=== PATIENT | female | born 1965 | race Caucasian/White ===

== ENCOUNTER 2019-04-05 11:47 | Inpatient (IN) | payer BC, SELFPAY ==
--- NOTE | 2019-04-05 12:21 | RAD ---
2 VIEW CHEST: Date: 04/05/19 HISTORY: Shortness of breath. FINDINGS: Lung villavicencio are clear. Heart and mediastinum appear normal. Postop sternotomy changes. IMPRESSION: No acute findings. POS: [facility]
[2019-04-05 12:45] LABS: #Lymphocytes 1.3 thou/uL (1.20-3.40); #Monocytes 0.6 thou/uL (0.11-0.59); #Neutrophils 7.3 thou/uL (1.40-6.50); %Basophils 0.5 % (0.0-1.0); %Eosinophils 0.3 % (0.0-10.0); %Lymphocytes 13.6 % (21.0-51.0); %Monocytes 6.5 % (0.0-10.0); %Neutrophils 79.2 % (42.0-75.0); Hemoglobin 14.2 g/dL (12.0-16.0); Mean Corpuscular HGB CONC 34.2 g/dL (32.0-36.0); Mean Corpuscular Hemoglobin 34.8 pg (27.0-31.0); Mean Platelet Volume 6.5 fL (7.4-10.4); Platelet Count 304 thou/uL (130-400); RBC Distribution Width 12.1 % (11.5-14.5); Red Blood Cell (RBC) Count 4.08 mill/uL (4.20-5.40); White Blood Cell (WBC) Count 9.3 thou/uL (4.8-10.8)
[2019-04-05 13:06] LABS: ALT (SGPT) 15 U/L (8-55); AST (SGOT) 14 U/L (5-34); Albumin 4.4 g/dL (3.5-5.0); Alkaline Phosphatase 82 U/L (40-110); Anion Gap 11 mmol/L (10-20); BUN (Urea Nitrogen) 8 mg/dL (9.8-20.1); Bilirubin, Total 0.3 mg/dL (0.2-1.2); CK (CPK) 93 U/L (29-168); Calc. Creatinine Clearance 0 mL/min (70-130); Calcium 9.6 mg/dL (7.8-10.44); Carbon Dioxide 28 mmol/L (22-29); Chloride 103 mmol/L (98-107); Estimated GFR-MDRD 63; Glucose 119 mg/dL (70-105); Protein, Total 7.4 g/dL (6.0-8.3); Sodium 138 mmol/L (136-145)
[2019-04-05] MEDS ORDERED: methylPREDNISolone Sod Succ/PF 125 MG/2 ML VIAL ONE (13:14)
[2019-04-05] MEDS ORDERED: Ondansetron ODT 4 MG TAB PO PRN (17:29)
[2019-04-05] MEDS ORDERED: Ondansetron PF 4 MG/2 ML Vial IVP PRN (17:29)
[2019-04-05] MEDS ORDERED: Guaifenesin DM 100-10/5 ML UDCUP PO PRN (17:29)
[2019-04-05] MEDS ORDERED: Nitroglycerin 0.4 MG TAB (25 Tab Bottle) SL PRN (17:49)
[2019-04-05] MEDS ORDERED: Azithromycin 500 MG in Sodium Chloride 0.9% 250 ML 250 ML IVPB SCH (18:00)
[2019-04-05] MEDS: cefTRIAXone\\ROCEPHIN 2 GM in Sodium Chloride 0.9% 100 ML IVPB SCH (19:06)
[2019-04-05] MEDS: Acetaminophen 325 MG TAB PO PRN (19:11)
[2019-04-05] MEDS: Aspirin Chewable 81 MG TAB PO SCH (19:11)
[2019-04-05 19:14] VITALS: BMI 34.9
--- NOTE | 2019-04-05 19:52 | HP ---
PRIMARY CARE PHYSICIAN: Dr. Duncan. CHIEF COMPLAINT: Cough and shortness of breath. HISTORY OF PRESENT ILLNESS: Ms. Irene is a 54-year-old female with a past medical history of hypertension, hypothyroidism, COPD, currently on oxygen at home, presented to the ED earlier today after worsening cough and shortness of breath since Tuesday. She states that she had seen her PCP earlier on in the week and was started on a Z-Samuel along with some prednisone. She states that since then, she has needed frequent DuoNeb treatments at home and she is on 2 L of oxygen during the day and 3 L of oxygen at nighttime. She states that she sees Dr. Leone, [place] sorter for history of CHF, which is currently stable at this time. She states over the last 2 to 3 days, she has had this left-sided rib pain that is worse with cough and deep breathing. Upon arriving to the ED, her chest x-ray was found to be clear. However, she had scattered wheezing throughout and had an increased work of breathing. Her troponin was found to be less than 0.010. Her vitals were found to be stable and she had no elevated white count, she was treated with IV Solu-Medrol 125 mg along with 2 DuoNeb treatments. She had stated that her symptoms did improve after this regimen. She had denied any fever, chills, headache, blurred vision, dizziness, any chest pain, palpitations, abdominal pain, nausea, or vomiting. REVIEW OF SYSTEMS: All other systems reviewed and found to be negative unless mentioned in HPI. PAST MEDICAL HISTORY: Hypertension, hypothyroidism, COPD, coronary artery disease status post CABG x3, and gastroesophageal reflux disease. PAST SURGICAL HISTORY: Left arm surgery, CABG x3 in 2000, tubal ligation, and radiation treatment on the thyroid. PSYCHIATRIC HISTORY: Includes anxiety. SOCIAL HISTORY: The patient is a former smoker. She quit smoking cigarettes more than 10 years ago. She denies alcohol or illicit drug use. KNOWN ALLERGIES: Influenza vaccine, statin and pneumococcal vaccine. CURRENT HOME MEDICATIONS: 1. Aspirin 81 mg daily. 2. Alprazolam 1 mg p.o. t.i.d. 3. Alirocumab 150 mg subcutaneous. 4. DuoNeb 3 mL nebulizer q.i.d. 5. Pepcid 20 mg p.o. b.i.d. 6. Carvedilol 18.75 mg p.o. b.i.d. 7. Clopidogrel 37.5 mg p.o. daily. 8. Isosorbide 30 mg b.i.d. and 60 mg p.o. at 1500 hours. 9. Levothyroxine 125 mcg p.o. daily. 10. Magnesium 400 mg p.o. b.i.d. 11. Nitroglycerin 0.4 mg sublingual daily. 12. Protonix 40 mg p.o. daily. 13. Ranexa 1000 mg p.o. b.i.d. 14. Spironolactone 25 mg p.o. daily. PHYSICAL EXAMINATION: VITAL SIGNS: Blood pressure 124/80, pulse 87, respirations 18, temperature 97.9, and O2 saturation 94% on 2 L of oxygen via nasal cannula. GENERAL: The patient is awake, alert, and oriented x3. She is currently lying comfortably in bed and in no acute distress. Her is at bedside and she is on 2 L of oxygen via nasal cannula. HEENT: Atraumatic, normocephalic. Pupils are round and reactive to light. Extraocular muscles intact. Moist mucous membranes noted. NECK: Soft and supple. Trachea midline. CARDIOVASCULAR: Positive S1 and S2. Regular rate and rhythm. No murmur auscultated. RESPIRATORY: Diffuse wheezing throughout lung villavicencio. ABDOMEN: Soft, nontender. Bowel sounds present. EXTREMITIES: Moves all extremities equal. Pedal and radial pulses 2+ bilaterally. No edema noted. NEUROLOGIC: Cranial nerves 2 through 12 grossly intact. No focal deficits noted. Speech intact and normal. Gait not assessed. SKIN: Warm, dry, and intact. No rashes. No ulceration noted. PSYCHIATRIC: Good mood and affect. LABORATORY DATA: WBC 9.3, RBC 4.08, hemoglobin 14.2, hematocrit 41.5, platelet count 304. Sodium 138, potassium 4.0, anion gap 11, BUN 8, creatinine 0.93, estimated GFR 63, glucose 119. Troponin less than 0.010. BNP 127.5. DIAGNOSTIC IMAGING: Two-view chest x-ray revealed no acute findings. ASSESSMENT/PLAN: 1. Chronic obstructive pulmonary disease exacerbation, the patient will be treated with IV ceftriaxone and azithromycin. She will be placed on as needed DuoNeb treatments along with IV Solu-Medrol 40 mg q.6 hours. 2. Hypertension, currently stable. Continue home regimen. 3. History of coronary artery disease. Continue home regimen. 4. History of cardiomyopathy. Continue home regimen. 5. Hypothyroidism, continue home levothyroxine. 6. Gastroesophageal reflux disease. Continue home regimen. 7. Deep venous thrombosis and gastrointestinal prophylaxis. 8. Code status, full code. DISPOSITION: Pending further workup and clinical findings. Job ID: [id number]
[2019-04-05] MEDS: Azithromycin 500 MG in Sodium Chloride 0.9% 250 ML 250 ML IVPB SCH (20:26)
[2019-04-05] MEDS: Magnesium Oxide 400 MG TAB PO SCH (20:29)
[2019-04-05] MEDS: Famotidine 20 MG TAB PO SCH (20:30)
[2019-04-05] MEDS: ALPRAZolam 1 MG TAB PO SCH (20:33)
[2019-04-05] MEDS: Carvedilol 6.25 MG TAB PO SCH (20:33)
[2019-04-05] MEDS: Isosorbide Dinitrate 20 MG TAB PO SCH (20:34)
[2019-04-05] MEDS: traMADol HCl 50 MG TAB PO PRN (22:12)
[2019-04-06] MEDS: methylPREDNISolone Sod Succ 40 MG VIAL IVP SCH ×2 (05:14→11:44)
[2019-04-06] MEDS: Levothyroxine Sodium 125 MCG TAB PO SCH (05:14)
[2019-04-06] MEDS: traMADol HCl 50 MG TAB PO PRN ×3 (05:15→21:07)
[2019-04-06 06:19] LABS: #Lymphocytes 1.3 thou/uL (1.20-3.40); #Monocytes 0.2 thou/uL (0.11-0.59); #Neutrophils 10.1 thou/uL (1.40-6.50); %Basophils 0.2 % (0.0-1.0); %Eosinophils 0.1 % (0.0-10.0); %Lymphocytes 10.9 % (21.0-51.0); %Monocytes 1.9 % (0.0-10.0); Hemoglobin 13.2 g/dL (12.0-16.0); Mean Corpuscular HGB CONC 34.2 g/dL (32.0-36.0); Mean Corpuscular Hemoglobin 34.9 pg (27.0-31.0); Mean Platelet Volume 6.7 fL (7.4-10.4); Platelet Count 299 thou/uL (130-400); RBC Distribution Width 12.2 % (11.5-14.5); Red Blood Cell (RBC) Count 3.79 mill/uL (4.20-5.40); White Blood Cell (WBC) Count 11.6 thou/uL (4.8-10.8)
[2019-04-06 06:40] LABS: Anion Gap 15 mmol/L (10-20); BUN (Urea Nitrogen) 10 mg/dL (9.8-20.1); Calc. Creatinine Clearance 115 mL/min (70-130); Calcium 9.3 mg/dL (7.8-10.44); Carbon Dioxide 26 mmol/L (22-29); Chloride 99 mmol/L (98-107); Estimated GFR-MDRD 77; Glucose 117 mg/dL (70-105); Potassium 4.1 mmol/L (3.5-5.1); Sodium 136 mmol/L (136-145)
[2019-04-06] MEDS: Clopidogrel Bisulfate 75 MG TAB PO SCH (08:23)
[2019-04-06] MEDS: Isosorbide Dinitrate 20 MG TAB PO SCH ×3 (08:28→20:38)
[2019-04-06] MEDS: Magnesium Oxide 400 MG TAB PO SCH ×2 (08:29→20:37)
[2019-04-06] MEDS: Spironolactone 25 MG TAB PO SCH (08:30)
[2019-04-06] MEDS: ALPRAZolam 1 MG TAB PO SCH ×3 (08:30→20:39)
[2019-04-06] MEDS: Famotidine 20 MG TAB PO SCH ×2 (08:31→20:37)
[2019-04-06] MEDS: Carvedilol 6.25 MG TAB PO SCH ×2 (08:32→20:38)
[2019-04-06] MEDS ORDERED: ALIROCUMAB 150 MG SC SCH (09:00)
[2019-04-06 14:50] LABS: Troponin I Less than 0.010 ng/mL (< 0.028)
--- NOTE | 2019-04-06 16:32 | PDOC.HOSPP ---
- Subjective Encounter Date: 04/06/19 Encounter Time: 16:30 Subjective: pt up in bed very emotional. States she has some chest tightness earlier. she follows up with Dr jerry. - Objective Vital Signs & Weight: Vital Signs (12 hours) Temp Pulse Resp BP BP Pulse Ox 04/06/19 11:06 89 18 99 04/06/19 08:32 125/85 04/06/19 07:19 97.5 F L 71 16 125/85 95 04/06/19 05:36 97.5 F L 73 20 118/75 95 Weight Weight 197 lb I&O: 04/05/19 04/06/19 04/07/19 06:59 06:59 06:59 Intake Total 240 Balance 240 Result Diagrams: 04/06/19 05:35 04/06/19 05:35 Hospitalist ROS - Review of Systems Respiratory: reports: shortness of breath Cardiovascular: reports: chest pain, palpitations. denies: orthopnea, paroxysmal noc. dyspnea, edema, light headedness, other Gastrointestinal: denies: nausea, vomiting, abdominal pain, diarrhea, constipation, melena, hematochezia, other - Medication Medications: Active Medications Generic Name Dose Route Start Last Admin Trade Name Freq PRN Reason Stop Dose Admin Acetaminophen 650 mg 04/05/19 17:29 04/05/19 19:11 Tylenol PO 650 mg Q4H PRN Administration Headache/Fever/Mild Pain (1-3) Albuterol/Ipratropium 3 ml 04/05/19 17:27 04/06/19 11:06 Duoneb NEB 3 ml [id number] PRN Administration SOB &/or Wheezing Alprazolam 1 mg 04/05/19 21:00 04/06/19 15:18 Xanax PO 1 mg TID MISSAEL Administration Aspirin 81 mg 04/05/19 18:00 04/05/19 19:11 Aspirin Chewable PO 81 mg 1800 MISSAEL Administration Carvedilol 18.75 mg 04/05/19 21:00 04/06/19 08:32 Coreg PO 18.75 mg BID MISSAEL Administration Clopidogrel Bisulfate 37.5 mg 04/06/19 09:00 04/06/19 08:23 Plavix PO 37.5 mg DAILY MISSAEL Administration Famotidine 20 mg 04/05/19 21:00 04/06/19 08:31 Pepcid PO 20 mg BID MISSAEL Administration Ceftriaxone Sodium 2 gm/ 100 mls @ 200 mls/hr 04/05/19 17:30 04/05/19 19:06 Sodium Chloride IVPB 100 mls Q24HR MISSAEL Administration Azithromycin 500 mg/ Sodium 250 mls @ 250 mls/hr 04/05/19 20:00 04/05/19 20: 26 Chloride IVPB 250 mls Q24HR MISSAEL Administration Isosorbide Dinitrate 30 mg 04/05/19 21:00 04/06/19 08:28 Isordil PO 30 mg BID MISSAEL Administration Isosorbide Dinitrate 60 mg 04/06/19 15:00 04/06/19 15:19 Isordil PO 60 mg 1500 MISSAEL Administration Levothyroxine Sodium 125 mcg 04/06/19 06:00 04/06/19 05:14 Synthroid PO 125 mcg 0600 MISSAEL Administration Magnesium Oxide 400 mg 04/05/19 21:00 04/06/19 08:29 Magnesium Oxide PO 400 mg BID MISSAEL Administration Pantoprazole Sodium 40 mg 04/06/19 09:00 04/06/19 08:29 Protonix PO 40 mg DAILY MISSAEL Administration Ranolazine 1,000 mg 04/05/19 21:00 04/06/19 08:23 Ranexa PO 1,000 mg BID MISSAEL Administration Spironolactone 25 mg 04/06/19 09:00 04/06/19 08:30 Aldactone PO 25 mg DAILY MISSAEL Administration Tramadol HCl 50 mg 04/05/19 21:43 04/06/19 11:43 Ultram PO 50 mg Q6H PRN Administration Moderate Pain (4-6) - Exam Heart: negative: RRR, no murmur, no gallops, no rubs, normal peripheral pulses, irregular, diminshed peripheral pulses, murmur present, II/IV, III/IV Respiratory: rhonchi, wheezes Gastrointestinal: negative: soft, non-tender, non-distended, normal bowel sounds , no palpable masses, no hepatomegaly, no splenomegaly, no bruit, no guarding, no rigidity, tender to palpation, distended, diminished bowl sounds, voluntary guarding Extremities: negative: no cyanosis, no clubbing, no edema, 1+ LE edema, 2+ LE edema, clubbing Hosp A/P (1) Acute respiratory failure with hypoxia Code(s): J96.01 - ACUTE RESPIRATORY FAILURE WITH HYPOXIA Status: Acute (2) COPD exacerbation Code(s): J44.1 - CHRONIC OBSTRUCTIVE PULMONARY DISEASE W (ACUTE) EXACERBATION Status: Acute (3) CAD (coronary artery disease) Code(s): I25.10 - ATHSCL HEART DISEASE OF [place] CORONARY ARTERY W/O ANG PCTRS Status: Acute (4) Leukocytosis Code(s): D72.829 - ELEVATED WHITE BLOOD CELL COUNT, UNSPECIFIED Status: Acute - Plan will change steroids to daily, duoneb and abx. will check viral panel. I think her chest tightness is due to anxiety. she was very emotional. trops are negative and her bnp is mildly elevated.
[2019-04-06] MEDS: cefTRIAXone\\ROCEPHIN 2 GM in Sodium Chloride 0.9% 100 ML IVPB SCH (17:54)
[2019-04-06] MEDS: Aspirin Chewable 81 MG TAB PO SCH (17:54)
[2019-04-06] MEDS: Azithromycin 500 MG in Sodium Chloride 0.9% 250 ML 250 ML IVPB SCH (20:39)
[2019-04-07] MEDS: Levothyroxine Sodium 125 MCG TAB PO SCH (05:30)
[2019-04-07] MEDS: Magnesium Oxide 400 MG TAB PO SCH ×2 (07:58→20:12)
[2019-04-07] MEDS: ALPRAZolam 1 MG TAB PO SCH ×3 (07:58→20:12)
[2019-04-07] MEDS: Isosorbide Dinitrate 20 MG TAB PO SCH ×3 (10:10→20:13)
[2019-04-07] MEDS: Carvedilol 6.25 MG TAB PO SCH ×2 (10:12→15:24)
[2019-04-07] MEDS: Famotidine 20 MG TAB PO SCH ×2 (10:12→20:12)
[2019-04-07] MEDS: Clopidogrel Bisulfate 75 MG TAB PO SCH (10:12)
[2019-04-07] MEDS: Spironolactone 25 MG TAB PO SCH (10:13)
[2019-04-07] MEDS: methylPREDNISolone Sod Succ 40 MG VIAL IVP SCH (10:49)
[2019-04-07] MEDS: cefTRIAXone\\ROCEPHIN 2 GM in Sodium Chloride 0.9% 100 ML IVPB SCH (15:14)
[2019-04-07] MEDS: Aspirin Chewable 81 MG TAB PO SCH (15:15)
--- NOTE | 2019-04-07 18:01 | PDOC.HOSPP ---
- Subjective Encounter Date: 04/07/19 Encounter Time: 13:45 Subjective: Ms. Irene was seen today in follow-up of COPD exacerbation. She tells me she continues to have some dyspnea, and tightness in her chest. - Objective Vital Signs & Weight: Vital Signs (12 hours) Temp Pulse Resp BP Pulse Ox 04/07/19 13:35 74 18 94 L 04/07/19 07:41 98.0 F 74 20 122/82 94 L Weight Weight 197 lb I&O: 04/06/19 04/07/19 04/08/19 06:59 06:59 06:59 Intake Total 240 Balance 240 Result Diagrams: 04/06/19 05:35 04/06/19 05:35 Hospitalist ROS - Medication Medications: Active Medications Generic Name Dose Route Start Last Admin Trade Name Freq PRN Reason Stop Dose Admin Acetaminophen 650 mg 04/05/19 17:29 04/05/19 19:11 Tylenol PO 650 mg Q4H PRN Administration Headache/Fever/Mild Pain (1-3) Albuterol/Ipratropium 3 ml 04/05/19 17:27 04/07/19 05:01 Duoneb NEB 3 ml [id number] PRN Administration SOB &/or Wheezing Albuterol/Ipratropium 3 ml 04/07/19 13:00 04/07/19 13:35 Duoneb NEB 3 ml [id number] MISSAEL Administration Alprazolam 1 mg 04/05/19 21:00 04/07/19 15:14 Xanax PO 1 mg TID MISSAEL Administration Aspirin 81 mg 04/05/19 18:00 04/07/19 15:15 Aspirin Chewable PO 81 mg 1800 MISSAEL Administration Carvedilol 18.75 mg 04/05/19 21:00 04/07/19 15:24 Coreg PO 18.75 mg BID MISSAEL Administration Clopidogrel Bisulfate 37.5 mg 04/06/19 09:00 04/07/19 10:12 Plavix PO 37.5 mg DAILY MISSAEL Administration Famotidine 20 mg 04/05/19 21:00 04/07/19 10:12 Pepcid PO 20 mg BID MISSAEL Administration Guaifenesin/Dextromethorphan 15 ml 04/05/19 17:29 04/07/19 08:08 Robitussin Dm PO 15 ml Q4H PRN Administration Cough Ceftriaxone Sodium 2 gm/ 100 mls @ 200 mls/hr 04/05/19 17:30 04/07/19 15:14 Sodium Chloride IVPB 100 mls Q24HR MISSAEL Administration Azithromycin 500 mg/ Sodium 250 mls @ 250 mls/hr 04/05/19 20:00 04/06/19 20: 39 Chloride IVPB 250 mls Q24HR MISSAEL Administration Isosorbide Dinitrate 30 mg 04/05/19 21:00 04/07/19 10:10 Isordil PO 30 mg BID [facility] Administration Isosorbide Dinitrate 60 mg 04/06/19 15:00 04/07/19 15:13 Isordil PO 60 mg 1500 [facility] Administration Levothyroxine Sodium 125 mcg 04/06/19 06:00 04/07/19 05:30 Synthroid PO 125 mcg 0600 [facility] Administration Magnesium Oxide 400 mg 04/05/19 21:00 04/07/19 07:58 Magnesium Oxide PO 400 mg BID [facility] Administration Methylprednisolone Sodium Succinate 40 mg 04/07/19 09:00 04/07/19 10:49 Solu-Medrol IVP Not Given DAILY [facility] Nitroglycerin 0.4 mg 04/05/19 17:49 04/06/19 21:04 Nitrostat SL 1 tab DAILY PRN Administration Chest Pain Pantoprazole Sodium 40 mg 04/06/19 09:00 04/07/19 07:59 Protonix PO 40 mg DAILY [facility] Administration Ranolazine 1,000 mg 04/05/19 21:00 04/07/19 07:58 Ranexa PO 1,000 mg BID [facility] Administration Spironolactone 25 mg 04/06/19 09:00 04/07/19 10:13 Aldactone PO 25 mg DAILY [facility] Administration Tramadol HCl 50 mg 04/05/19 21:43 04/06/19 21:07 Ultram PO 50 mg Q6H PRN Administration Moderate Pain (4-6) - Exam Eye: PERRL, anicteric sclera ENT: normocephalic atraumatic, no oropharyngeal lesions, moist mucosa Heart: RRR, no murmur, no gallops, no rubs, normal peripheral pulses Respiratory: no rales, no ronchi, wheezes (+ tight wheezing bilaterally) Gastrointestinal: soft, non-tender, non-distended, normal bowel sounds, no palpable masses, no hepatomegaly, no splenomegaly Extremities: no cyanosis, no clubbing, no edema Psychiatric: normal affect, normal behavior, A&O x 3 Hosp A/P (1) Acute on chronic respiratory failure with hypoxemia Code(s): J96.21 - ACUTE AND CHRONIC RESPIRATORY FAILURE WITH HYPOXIA Status: Acute (2) COPD exacerbation Code(s): J44.1 - CHRONIC OBSTRUCTIVE PULMONARY DISEASE W (ACUTE) EXACERBATION Status: Acute (3) Hypertension Code(s): I10 - ESSENTIAL (PRIMARY) HYPERTENSION Status: Acute (4) CAD (coronary artery disease) Code(s): I25.10 - ATHSCL HEART DISEASE OF [place] CORONARY ARTERY W/O ANG PCTRS Status: Acute - Plan * COPD exacerbation with acute on chronic respiratory failure- will continue Rocephina and Azithromycin, as well as duonebs, and steroids * Re-assess in the AM * Will request her records from the outside hospital- especially the PFT's * HTN- blood pressure is stable * CAD- stable
[2019-04-07] MEDS ORDERED: Stress 600 With Zinc 1 TAB PO SCH (18:30)
[2019-04-07] MEDS: Azithromycin 500 MG in Sodium Chloride 0.9% 250 ML 250 ML IVPB SCH (20:14)
[2019-04-07] MEDS ORDERED: guaiFENesin ER 600 MG TAB PO SCH (22:15)
[2019-04-07] MEDS: traMADol HCl 50 MG TAB PO PRN (22:37)
[2019-04-08] MEDS: Acetaminophen 325 MG TAB PO PRN (04:38)
[2019-04-08] MEDS: Levothyroxine Sodium 125 MCG TAB PO SCH (05:28)
[2019-04-08] MEDS ORDERED: CYANOCOBALAMIN PO SCH (09:00)
[2019-04-08] MEDS ORDERED: VIT B6 PO SCH (09:00)
[2019-04-08] MEDS ORDERED: FOLIC AC PO SCH (09:00)
[2019-04-08] MEDS: guaiFENesin ER 600 MG TAB PO SCH ×2 (09:25→20:26)
[2019-04-08] MEDS: Isosorbide Dinitrate 20 MG TAB PO SCH ×3 (09:26→20:26)
[2019-04-08] MEDS: ALPRAZolam 1 MG TAB PO SCH ×3 (09:26→20:26)
[2019-04-08] MEDS: Magnesium Oxide 400 MG TAB PO SCH ×2 (09:26→20:26)
[2019-04-08] MEDS: methylPREDNISolone Sod Succ 40 MG VIAL IVP SCH (09:27)
[2019-04-08] MEDS: Carvedilol 6.25 MG TAB PO SCH ×2 (11:06→20:26)
[2019-04-08] MEDS: Clopidogrel Bisulfate 75 MG TAB PO SCH (11:06)
[2019-04-08] MEDS: Spironolactone 25 MG TAB PO SCH (11:06)
[2019-04-08] MEDS: Famotidine 20 MG TAB PO SCH ×2 (11:07→20:26)
--- NOTE | 2019-04-08 11:36 | PDOC.HOSPP ---
- Subjective Encounter Date: 04/08/19 Encounter Time: 11:34 Subjective: Ms. Irene was seen today in follow-up of COPD exacerbation. She is only a little better today than yesterday. She continues to have significant fatigue, and dyspnea. - Objective Vital Signs & Weight: Vital Signs (12 hours) Temp Pulse Resp BP BP Pulse Ox 04/08/19 11:06 139/74 04/08/19 09:00 98.4 F 68 16 139/74 99 04/08/19 08:00 99 04/08/19 05:06 64 18 98 04/08/19 04:46 98.0 F 66 18 101/50 L 96 04/08/19 00:27 81 22 H 95 Weight Weight 197 lb Result Diagrams: 04/06/19 05:35 04/06/19 05:35 Hospitalist ROS - Medication Medications: Active Medications Generic Name Dose Route Start Last Admin Trade Name Freq PRN Reason Stop Dose Admin Acetaminophen 650 mg 04/05/19 17:29 04/08/19 04:38 Tylenol PO 650 mg Q4H PRN Administration Headache/Fever/Mild Pain (1-3) Albuterol/Ipratropium 3 ml 04/05/19 17:27 04/07/19 05:01 Duoneb NEB 3 ml [id number] PRN Administration SOB &/or Wheezing Albuterol/Ipratropium 3 ml 04/07/19 13:00 04/08/19 05:06 Duoneb NEB 3 ml [id number] MISSAEL Administration Alprazolam 1 mg 04/05/19 21:00 04/08/19 09:26 Xanax PO 1 mg TID MISSAEL Administration Aspirin 81 mg 04/05/19 18:00 04/07/19 15:15 Aspirin Chewable PO 81 mg 1800 MISSAEL Administration Carvedilol 18.75 mg 04/05/19 21:00 04/08/19 11:06 Coreg PO 18.75 mg BID MISSAEL Administration Clopidogrel Bisulfate 37.5 mg 04/06/19 09:00 04/08/19 11:06 Plavix PO 37.5 mg DAILY MISSAEL Administration Famotidine 20 mg 04/05/19 21:00 04/08/19 11:07 Pepcid PO 20 mg BID MISSAEL Administration Guaifenesin 600 mg 04/08/19 09:00 04/08/19 09:25 Mucinex PO 600 mg Q12HR MISSAEL Administration Guaifenesin/Dextromethorphan 15 ml 04/05/19 17:29 04/07/19 08:08 Robitussin Dm PO 15 ml Q4H PRN Administration Cough Ceftriaxone Sodium 2 gm/ 100 mls @ 200 mls/hr 04/05/19 17:30 04/07/19 15:14 Sodium Chloride IVPB 100 mls Q24HR MISSAEL Administration Azithromycin 500 mg/ Sodium 250 mls @ 250 mls/hr 04/05/19 20:00 04/07/19 20: 14 Chloride IVPB 250 mls Q24HR MISSAEL Administration Isosorbide Dinitrate 30 mg 04/05/19 21:00 04/08/19 09:26 Isordil PO 30 mg BID MISSAEL Administration Isosorbide Dinitrate 60 mg 04/06/19 15:00 04/07/19 15:13 Isordil PO 60 mg 1500 MISSAEL Administration Levothyroxine Sodium 125 mcg 04/06/19 06:00 04/08/19 05:28 Synthroid PO 125 mcg 0600 [facility] Administration Magnesium Oxide 400 mg 04/05/19 21:00 04/08/19 09:26 Magnesium Oxide PO 400 mg BID MISSAEL Administration Methylprednisolone Sodium Succinate 40 mg 04/07/19 09:00 04/08/19 09:27 Solu-Medrol IVP 40 mg DAILY MISSAEL Administration Nitroglycerin 0.4 mg 04/05/19 17:49 04/06/19 21:04 Nitrostat SL 1 tab DAILY PRN Administration Chest Pain Pantoprazole Sodium 40 mg 04/06/19 09:00 04/08/19 09:26 Protonix PO 40 mg DAILY MISSAEL Administration Ranolazine 1,000 mg 04/05/19 21:00 04/08/19 09:26 Ranexa PO 1,000 mg BID MISSAEL Administration Spironolactone 25 mg 04/06/19 09:00 04/08/19 11:06 Aldactone PO 25 mg DAILY MISSAEL Administration Tramadol HCl 50 mg 04/05/19 21:43 04/07/19 22:37 Ultram PO 50 mg Q6H PRN Administration Moderate Pain (4-6) - Exam Eye: PERRL, anicteric sclera Heart: RRR, no murmur, no gallops, no rubs, normal peripheral pulses Respiratory: no rales, no ronchi, normal chest expansion, wheezes (Bilateral tight wheezing, but a slight improvement from yesterday) Gastrointestinal: soft, non-tender, non-distended, normal bowel sounds, no palpable masses, no hepatomegaly, no splenomegaly, no bruit, no guarding Extremities: no cyanosis, no clubbing, no edema Hosp A/P (1) Acute on chronic respiratory failure with hypoxemia Code(s): J96.21 - ACUTE AND CHRONIC RESPIRATORY FAILURE WITH HYPOXIA Status: Acute (2) COPD exacerbation Code(s): J44.1 - CHRONIC OBSTRUCTIVE PULMONARY DISEASE W (ACUTE) EXACERBATION Status: Acute (3) Hypertension Code(s): I10 - ESSENTIAL (PRIMARY) HYPERTENSION Status: Acute (4) CAD (coronary artery disease) Code(s): I25.10 - ATHSCL HEART DISEASE OF [place] CORONARY ARTERY W/O ANG PCTRS Status: Acute - Plan * COPD exacerbation with acute on chronic respiratory failure- will continue Rocephin and Azithromycin, as well as duonebs, and steroids * Will check an Echo and CXR to rule out" cardiac asthma * Requested her records from the outside hospital- none yet- her daughter will bring what they have at home * HTN- blood pressure is stable * CAD- stable
--- NOTE | 2019-04-08 12:09 | RAD ---
EXAM: Two views chest PROVIDED CLINICAL HISTORY: Follow-up evaluation. COPD COMPARISON: 04/05/2019 FINDINGS: Postsurgical changes related to CABG are again noted. There is a fracture of the lowermost sternal wi re. The cardiac silhouette and pulmonary vasculature are within normal limits. There is linear density overlying the right hilar region right midlung zone which was not present on the prior study and is likely related to atelectasis. The lungs are otherwise clear. There is been no other interval change from prior exam. IMPRESSION: Findings likely due to interval development of subsegmental atelectasis overlying the right hilar reg ion and right midlung zone. There is otherwise no acute cardiopulmonary process.
[2019-04-08] MEDS: Stress 600 With Zinc 1 TAB PO SCH (14:02)
[2019-04-08] MEDS: Aspirin Chewable 81 MG TAB PO SCH (17:03)
[2019-04-08] MEDS: cefTRIAXone\\ROCEPHIN 2 GM in Sodium Chloride 0.9% 100 ML IVPB SCH (17:03)
[2019-04-08] MEDS: Azithromycin 500 MG in Sodium Chloride 0.9% 250 ML 250 ML IVPB SCH (20:25)
[2019-04-09] MEDS: Acetaminophen 325 MG TAB PO PRN (02:18)
[2019-04-09] MEDS: Levothyroxine Sodium 125 MCG TAB PO SCH (05:23)
[2019-04-09] MEDS: Isosorbide Dinitrate 20 MG TAB PO SCH ×2 (08:01→14:46)
[2019-04-09] MEDS: ALPRAZolam 1 MG TAB PO SCH ×2 (08:02→14:44)
[2019-04-09] MEDS: Magnesium Oxide 400 MG TAB PO SCH (08:03)
[2019-04-09] MEDS: guaiFENesin ER 600 MG TAB PO SCH (08:04)
[2019-04-09] MEDS: methylPREDNISolone Sod Succ 40 MG VIAL IVP SCH (08:07)
[2019-04-09] MEDS: Spironolactone 25 MG TAB PO SCH (09:30)
[2019-04-09] MEDS: Clopidogrel Bisulfate 75 MG TAB PO SCH (09:30)
[2019-04-09] MEDS: Stress 600 With Zinc 1 TAB PO SCH (09:30)
[2019-04-09] MEDS: Carvedilol 6.25 MG TAB PO SCH (09:31)
[2019-04-09] MEDS: Famotidine 20 MG TAB PO SCH (09:31)
--- NOTE | 2019-04-09 12:59 | PDOC.HOSPP ---
- Subjective Encounter Date: 04/09/19 Encounter Time: 12:54 Subjective: Ms. Irene was seen today in follow-up of COPD exacerbation. She is feeling a bit better. She does not have any new complaints. - Objective Vital Signs & Weight: Vital Signs (12 hours) Temp Pulse Resp BP Pulse Ox 04/09/19 11:00 98 F 78 16 115/70 96 04/09/19 08:05 96 04/09/19 07:40 97.8 F 71 20 122/76 96 04/09/19 06:14 74 12 100 Weight Weight 197 lb I&O: 04/08/19 04/09/19 04/10/19 06:59 06:59 06:59 Intake Total 730 Balance 730 Result Diagrams: 04/06/19 05:35 04/06/19 05:35 Hospitalist ROS - Medication Medications: Active Medications Generic Name Dose Route Start Last Admin Trade Name Freq PRN Reason Stop Dose Admin Acetaminophen 650 mg 04/05/19 17:29 04/09/19 02:18 Tylenol PO 650 mg Q4H PRN Administration Headache/Fever/Mild Pain (1-3) Albuterol/Ipratropium 3 ml 04/05/19 17:27 04/07/19 05:01 Duoneb NEB 3 ml [id number] PRN Administration SOB &/or Wheezing Albuterol/Ipratropium 3 ml 04/07/19 13:00 04/09/19 06:14 Duoneb NEB 3 ml [id number] MISSAEL Administration Alprazolam 1 mg 04/05/19 21:00 04/09/19 08:02 Xanax PO 1 mg TID MISSAEL Administration Aspirin 81 mg 04/05/19 18:00 04/08/19 17:03 Aspirin Chewable PO 81 mg 1800 MISSAEL Administration Carvedilol 18.75 mg 04/05/19 21:00 04/09/19 09:31 Coreg PO 18.75 mg BID MISSAEL Administration Clopidogrel Bisulfate 37.5 mg 04/06/19 09:00 04/09/19 09:30 Plavix PO 37.5 mg DAILY MISSAEL Administration Famotidine 20 mg 04/05/19 21:00 04/09/19 09:31 Pepcid PO Not Given BID MISSAEL Guaifenesin 600 mg 04/08/19 09:00 04/09/19 08:04 Mucinex PO 600 mg Q12HR MISSAEL Administration Guaifenesin/Dextromethorphan 15 ml 04/05/19 17:29 04/07/19 08:08 Robitussin Dm PO 15 ml Q4H PRN Administration Cough Ceftriaxone Sodium 2 gm/ 100 mls @ 200 mls/hr 04/05/19 17:30 04/08/19 17:03 Sodium Chloride IVPB 100 mls Q24HR MISSAEL Administration Azithromycin 500 mg/ Sodium 250 mls @ 250 mls/hr 04/05/19 20:00 04/08/19 20: 25 Chloride IVPB 250 mls Q24HR MISSAEL Administration Isosorbide Dinitrate 30 mg 04/05/19 21:00 04/09/19 08:01 Isordil PO 30 mg BID MISSAEL Administration Isosorbide Dinitrate 60 mg 04/06/19 15:00 04/08/19 14:37 Isordil PO 60 mg 1500 MISSAEL Administration Levothyroxine Sodium 125 mcg 04/06/19 06:00 04/09/19 05:23 Synthroid PO 125 mcg 0600 MIS[facility]EL Administration Magnesium Oxide 400 mg 04/05/19 21:00 04/09/19 08:03 Magnesium Oxide PO 400 mg BID MISSAEL Administration Multivitamins/Zinc 1 tab 04/08/19 09:00 04/09/19 09:30 Stress 600 With Zinc PO 1 tab DAILY MISSAEL Administration Nitroglycerin 0.4 mg 04/05/19 17:49 04/06/19 21:04 Nitrostat SL 1 tab DAILY PRN Administration Chest Pain Pantoprazole Sodium 40 mg 04/06/19 09:00 04/09/19 08:02 Protonix PO 40 mg DAILY MISSAEL Administration Ranolazine 1,000 mg 04/05/19 21:00 04/09/19 08:03 Ranexa PO 1,000 mg BID MISSAEL Administration Spironolactone 25 mg 04/06/19 09:00 04/09/19 09:30 Aldactone PO 25 mg DAILY MISSAEL Administration Tramadol HCl 50 mg 04/05/19 21:43 04/07/19 22:37 Ultram PO 50 mg Q6H PRN Administration Moderate Pain (4-6) - Exam Eye: PERRL, anicteric sclera Heart: RRR, no murmur, no gallops, no rubs, normal peripheral pulses Respiratory: wheezes (+ improving, no rales or rhonchi) Gastrointestinal: soft, non-tender, non-distended, normal bowel sounds, no palpable masses, no hepatomegaly, no splenomegaly Extremities: no cyanosis, no clubbing, no edema Hosp A/P (1) Acute on chronic respiratory failure with hypoxemia Code(s): J96.21 - ACUTE AND CHRONIC RESPIRATORY FAILURE WITH HYPOXIA Status: Acute (2) COPD exacerbation Code(s): J44.1 - CHRONIC OBSTRUCTIVE PULMONARY DISEASE W (ACUTE) EXACERBATION Status: Acute (3) Hypertension Code(s): I10 - ESSENTIAL (PRIMARY) HYPERTENSION Status: Acute (4) CAD (coronary artery disease) Code(s): I25.10 - ATHSCL HEART DISEASE OF [place] CORONARY ARTERY W/O ANG PCTRS Status: Acute - Plan * COPD exacerbation with acute on chronic respiratory failure- Improved. Her PFT 's were reviewed and are consistent with COPD. with an FEV1 to FVC ratio ranging from 69 to 71, and and FEV1 percent predicted of 67 to 72 * Echo results noted * She is stable for discharge home
[2019-04-09 15:50] VITALS: BP 131/85; TEMP 97.9
--- NOTE | 2019-04-10 00:41 | DIS ---
DATE OF ADMISSION: 04/05/2019 DATE OF DISCHARGE: 04/09/2019 PRIMARY CARE PHYSICIAN: Dr. Arjun Duncan. DISCHARGE DISPOSITION: Home. DISCHARGE DIAGNOSES: 1. Acute on chronic respiratory failure due to chronic obstructive pulmonary disease exacerbation. 2. Chronic obstructive pulmonary disease exacerbation. 3. Coronary artery disease. 4. Gastroesophageal reflux disease. 5. History of bypass surgery. DISCHARGE MEDICATIONS: Include: 1. Prednisone 20 mg daily for four days. 2. Azithromycin 250 mg daily for four days. 3. DuoNeb. 4. Aldactone 25 mg daily. 5. Ranexa 1000 mg twice a day. 6. Protonix 40 mg daily. 7. Nitroglycerin 0.4 sublingual p.r.n. 8. Magnesium 400 mg twice daily. 9. Levothyroxine 125 mcg p.o. daily. 10. Isosorbide dinitrate 60 mg in the a.m. and 30 mg twice daily. 11. Pepcid 20 mg twice daily. 12. Cyanocobalamin 1 tablet daily. 13. . 14. Carvedilol 18.75 mg twice daily. 15. Aspirin 81 mg daily. 16. Alprazolam 1 mg t.i.d. 17. Praluent 150 mg monthly. PROCEDURES DONE DURING THIS ADMISSION: The patient had an echocardiogram which demonstrated an EF of 50% to 55%. There was some E to A flow reversal noted suggestive of diastolic dysfunction. CODE STATUS: Full code. ALLERGIES: TO INFLUENZA VACCINE, PNEUMOCOCCAL VACCINE, AND STATINS. HOSPITAL COURSE: Ms. Irene is a pleasant 54-year-old female, who was admitted to the hospital with shortness of breath. She was found to have COPD exacerbation. Chest x-ray was negative. The patient improved over the course of the next couple of days with DuoNeb, steroids, and antibiotics. The records were requested from [facility] in [place]. The pulmonary function tests were reviewed. She did have evidence of COPD by spirometry in one of the rounds of the spirometry, FEV1. FEV1 to FVC ratio was ranging from 0.9 to 71% predicted and the FEV1 in 1 second ranged from 67% to 72% indicating a [id number] COPD. I discussed that her symptoms did seem out of proportion to her pulmonary function test especially the amount of hypoxemia and recommend that she see a core inspector in the outpatient setting. We will also send her home with prescription for DuoNeb, Symbicort, antibiotics, and short course of prednisone. Job ID: [id number]
[2019-04-10] MEDS ORDERED: predniSONE 20 MG TAB PO SCH (08:00)
--- NOTE | 2019-04-11 06:54 | PQF ---
EFREN MONTES MD [id number] CLINICAL DOCUMENTATION CLARIFICATION FORM: POST DISCHARGE Addendum to original discharge summary date: ____ Late entry note date: __ DATE: 04-11-19 ATTN: Dr.Keaton Denise Please exercise your independent, professional judgment in responding to the clarification form. Clinical indicators are provided on the bottom of this form for your review Diagnosis: Acute on chronic respiratory failure with hypoxia Present on Admission (POA): [ ] Yes [ ] No [ ] Unable to determine Coding guidelines require hospitals to identify whether a diagnosis was present on admission (POA) or not. To accurately assign the appropriate POA indicator, this information must be clearly documented within the medical record. CLINICAL INDICATORS : HP 10/[address] Cifuentes Chief complaint: cough and shortness of breath HP 10/[address] Cifuentes had left rib pain that is worse with cough and breathing PN 10/[address] Rdz Acute on chronic respiratory failure with hypoxia DS 10/[address] Rdz Acute on chronic respiratory failure due to chronic obstructive pulmonary disease exacerbation RISK FACTORS: HP 10/3 Dr. Cifuentes-COPD HP 10/3 Dr. Cifuentes- Oxygen at home HP 10/3 Dr. Cifuentes- CAD HP 10/3 Dr. Cifuentes- HTN HP 10/3 Dr. Cifuentes- Former Smoker TREATMENT: HP 10/3 Dr. Cifuentes- IV Ceftriaxone and Azithromycin DS Spirometry MAR-Methylprednisolone 125 mg MAR- Douneb 3 ml (This form is maintained as a part of the permanent medical record) 2014 [employer]. All Rights Reserved [email or web address] [email or web address] [not provided] [email or web address]
== END 2019-04-09 16:15 | disposition home or self-care (01) | DRG 190 ==
LOC: ERS 11:47 → T4-A 17:00
PROVIDERS: ADMIT Internal Medicine; ATTEND Internal Medicine
DX: J44.1 Chronic obstructive pulmonary disease with (acute) exacerbation (principal); J96.21 Acute and chronic respiratory failure with hypoxia; I42.9 Cardiomyopathy, unspecified; E03.9 Hypothyroidism, unspecified; I11.0 Hypertensive heart disease with heart failure; I50.9 Heart failure, unspecified; F41.9 Anxiety disorder, unspecified; I25.10 Atherosclerotic heart disease of native coronary artery without angina pectoris; K21.9 Gastro-esophageal reflux disease without esophagitis; D72.829 Elevated white blood cell count, unspecified; Z88.8 Allergy status to other drugs, medicaments and biological substances; Z88.7 Allergy status to serum and vaccine; Z95.1 Presence of aortocoronary bypass graft; Z98.51 Tubal ligation status; Z87.891 Personal history of nicotine dependence; Z99.81 Dependence on supplemental oxygen; Z79.82 Long term (current) use of aspirin; Z79.899 Other long term (current) drug therapy; Z79.890 Hormone replacement therapy
CPT/HCPCS: 36415; 71046; 80048; 80053; 82550; 83880; 84484; 85025; 87633; 93005; 93306; 94640; 96374; J0456; J0696; J2920; J2930; J3490; J7050; J7620

== ENCOUNTER 2024-05-05 13:37 | Inpatient (IN) | payer OTHER ==
[2024-05-05] MEDS ORDERED: fentaNYL 50 mcg/mL 1 mL Vial ONE (14:07)
[2024-05-05 14:12] LABS: #Basophils 0.09 10x3/uL (0.0-0.2); #Eosinophils Less than 0.03 10x3/uL (0.0-0.7); %Basophils 0.6 % (0.0-1.0); %Eosinophils 0.1 % (0.0-10.0); %Monocytes 3.9 % (0.0-10.0); Hematocrit 43.5 % (36.0-47.0); Hemoglobin 15.1 g/dL (12.0-16.0); Mean Corpuscular HGB CONC 34.7 g/dL (32.0-36.0); Mean Corpuscular Hemoglobin 33.8 pg (27.0-31.0); Mean Corpuscular Volume 97.3 fL (78.0-98.0); Mean Platelet Volume 8.2 fL (7.4-10.4); Platelet Count 360 10x3/uL (130-400); RBC Distribution Width 14.4 % (11.5-14.5); Red Blood Cell (RBC) Count 4.47 mill/uL (4.20-5.40)
[2024-05-05 14:28] LABS: ALT (SGPT) 26 U/L (8-55); AST (SGOT) 16 U/L (5-34); Albumin 3.3 g/dL (3.5-5.0); Alkaline Phosphatase 101 U/L (40-110); Anion Gap 16 mmol/L (10-20); BUN (Urea Nitrogen) 13 mg/dL (9.8-20.1); Bilirubin, Total 0.5 mg/dL (0.2-1.2); Calc. Creatinine Clearance 0 mL/min (70-130); Calcium 8.9 mg/dL (7.8-10.44); Carbon Dioxide 23 mmol/L (22-29); Chloride 100 mmol/L (98-107); Estimated GFR 74; Globulin 3.2 g/dL (2.4-3.5); Glucose 161 mg/dL (70-105); Lipase 25 U/L (8-78); Protein, Total 6.5 g/dL (6.0-8.3); Sodium 135 mmol/L (136-145)
[2024-05-05 14:34] LABS: Troponin I Less than 0.010 ng/mL (< 0.028)
[2024-05-05] MEDS ORDERED: Iopamidol-370 76% 500 ML MDV (1 ML CHARGE) ONE (15:43)
[2024-05-05] MEDS ORDERED: Guaifenesin DM 100-10/5 ML UDCUP PO PRN (16:41)
[2024-05-05] MEDS ORDERED: Ondansetron PF 4 MG/2 ML Vial IVP PRN (16:41)
[2024-05-05] MEDS ORDERED: Acetaminophen 325 MG TAB PO PRN (16:41)
[2024-05-05] MEDS ORDERED: Cefepime 2 GM VIAL ONE (17:09)
[2024-05-05] MEDS ORDERED: Sodium Chloride 0.9% 100 ML ONE (17:09)
[2024-05-05 17:29] LABS: Troponin I 0.015 ng/mL (< 0.028)
[2024-05-05] MEDS ORDERED: Piperacillin/Tazobactam 3.375 GM in Sodium Chloride 0.9% 100 ML IVPB SCH (18:15)
[2024-05-05] MEDS: Ipratropium/Albuterol 3 ML NEB NEB SCH (18:36)
[2024-05-05 19:19] LABS: Lactic Acid 1.52 mmol/L (0.5-2.2)
[2024-05-05 20:33] LABS: Troponin I 0.017 ng/mL (< 0.028)
[2024-05-05] MEDS: Piperacillin/Tazobactam 3.375 GM in Sodium Chloride 0.9% 100 ML IVPB SCH (21:07)
[2024-05-05] MEDS: predniSONE 5 MG TAB PO SCH (21:16)
[2024-05-05] MEDS: Isosorbide Mononitrate 30 MG ER.TAB PO SCH (21:16)
[2024-05-05] MEDS: Ranolazine ER 500 MG TAB PO SCH (21:17)
[2024-05-05] MEDS: ALPRAZolam 1 MG TAB PO SCH (21:17)
[2024-05-05 21:28] VITALS: BMI 30.8
[2024-05-05] MEDS: HYDROcodone/Acetaminophen 7.5/325 mg Tablet PO PRN (21:56)
[2024-05-06] MEDS: Piperacillin/Tazobactam 3.375 GM in Sodium Chloride 0.9% 100 ML IVPB SCH (01:13)
[2024-05-06] MEDS: Melatonin 3 MG TAB PO PRN (01:49)
[2024-05-06] MEDS: Morphine 2 MG/ML VIAL SLOW IVP SCH (01:50)
[2024-05-06 04:13] LABS: Hematocrit 39.8 % (36.0-47.0); Hemoglobin 13.4 g/dL (12.0-16.0); Mean Corpuscular HGB CONC 33.7 g/dL (32.0-36.0); Mean Corpuscular Hemoglobin 33.8 pg (27.0-31.0); Mean Corpuscular Volume 100.3 fL (78.0-98.0); Mean Platelet Volume 8.6 fL (7.4-10.4); Platelet Count 349 10x3/uL (130-400); RBC Distribution Width 14.6 % (11.5-14.5); Red Blood Cell (RBC) Count 3.97 mill/uL (4.20-5.40)
[2024-05-06 04:47] LABS: Anion Gap 13 mmol/L (10-20); BUN (Urea Nitrogen) 12 mg/dL (9.8-20.1); Calc. Creatinine Clearance 86 mL/min (70-130); Calcium 8.3 mg/dL (7.8-10.44); Carbon Dioxide 22 mmol/L (22-29); Cardiac Risk 2.8 (Less than 4.5); Chloride 103 mmol/L (98-107); Cholesterol 137 mg/dl (< 200 Desired); Estimated GFR 76; Glucose 131 mg/dL (70-105); HDL Cholesterol 49 mg/dL (>60 Neg Risk); LDL Cholesterol, Calculated 64 mg/dL; Magnesium 2.2 mg/dL (1.6-2.6); Potassium 3.9 mmol/L (3.5-5.1); Sodium 134 mmol/L (136-145); Triglycerides 121 mg/dL (Less than 150)
[2024-05-06 04:52] LABS: Band 1 % (5-11); Lymphocytes 7 % (21-51); Monocytes 3 % (0-10); Myelocyte 2 % (0-0); Neutrophil 87 % (42-75); Platelet Adequacy Comment Platelets Normal; RBC Morphology Within Normal Limits
[2024-05-06 04:55] LABS: Free T4 (Free Thyroxine) 0.87 ng/dL (0.70-1.48); Thyroid Stimulating Hormone 7.2675 uIU/mL (0.35-4.94)
[2024-05-06] MEDS: Levothyroxine Sodium 125 MCG TAB PO SCH (05:53)
[2024-05-06] MEDS: Pantoprazole DR 40 MG TAB PO SCH (08:03)
[2024-05-06] MEDS: Aspirin 81 mg Enteric Coated Tablet PO SCH (08:03)
[2024-05-06] MEDS: Clopidogrel Bisulfate 75 MG TAB PO SCH (08:03)
[2024-05-06] MEDS: Furosemide 20 MG TAB PO SCH (08:03)
[2024-05-06] MEDS: Senokot S 8.6-50 MG TAB PO PRN (08:11)
[2024-05-06] MEDS ORDERED: Enoxaparin 30 MG (0.3 mL) SYRINGE SC SCH (09:00)
[2024-05-06] MEDS: Furosemide 40 MG (4 mL) VIAL SLOW IVP SCH (14:29)
[2024-05-06] MEDS: Enoxaparin 40 MG (0.4 mL) SYRINGE SC SCH (20:58)
[2024-05-07 05:18] LABS: Anion Gap 15 mmol/L (10-20); BUN (Urea Nitrogen) 10 mg/dL (9.8-20.1); Calc. Creatinine Clearance 97 mL/min (70-130); Carbon Dioxide 27 mmol/L (22-29); Chloride 98 mmol/L (98-107); Estimated GFR 88; Glucose 94 mg/dL (70-105); Hematocrit 43.1 % (36.0-47.0); Hemoglobin 14.5 g/dL (12.0-16.0); Mean Corpuscular HGB CONC 33.6 g/dL (32.0-36.0); Mean Corpuscular Hemoglobin 33.7 pg (27.0-31.0); Mean Corpuscular Volume 100.2 fL (78.0-98.0); Mean Platelet Volume 8.4 fL (7.4-10.4); Platelet Count 395 10x3/uL (130-400); Potassium 3.9 mmol/L (3.5-5.1); RBC Distribution Width 14.6 % (11.5-14.5); Sodium 136 mmol/L (136-145)
[2024-05-07] MEDS: Furosemide 40 MG (4 mL) VIAL SLOW IVP SCH (05:56)
[2024-05-07] MEDS: Levothyroxine 150 MCG TAB PO SCH (05:56)
[2024-05-07 07:07] LABS: Anisocytosis SLIGHT = 6-15 cells HPF (0-5); Band 3 % (5-11); Lymphocytes 9 % (21-51); Macrocytosis MODERATE=16-30 cells HPF (0-5); Monocytes 5 % (0-10); Neutrophil 82 % (42-75); Platelet Adequacy Comment Platelets Normal; Polychromasia SLIGHT = 2-3 cells HPF (0-2)
[2024-05-07] MEDS ORDERED: Polyethylene Glycol 3350 17 GM Packet PO PRN (09:28)
[2024-05-07] MEDS ORDERED: Nitroglycerin 0.4 MG TAB (25 Tab Bottle) SL PRN ×2 (09:28→14:40)
[2024-05-07] MEDS ORDERED: HYDROcodone/Acetaminophen 5/325 mg Tablet PO PRN (09:28)
[2024-05-07] MEDS ORDERED: Albuterol 200 PUFF (6.7GM INHALER) INH PRN (09:30)
[2024-05-07 11:30] VITALS: TEMP 98
[2024-05-07] MEDS ORDERED: ALPRAZolam 1 MG TAB PO SCH (13:00)
[2024-05-07 13:45] VITALS: BMI 29.9
[2024-05-07] MEDS: Isosorbide Dinitrate 20 MG TAB PO SCH (14:03)
[2024-05-07] MEDS ORDERED: PREDNISONE 10 MG PO SCH (15:00)
[2024-05-07 15:31] VITALS: BP 122/70
[2024-05-07] MEDS ORDERED: Aspirin Chewable 81 MG TAB PO SCH (18:00)
[2024-05-07] MEDS ORDERED: Mometasone 200 MCG/Formoterol 5 MCG 120 PUFF INHALER INH SCH (18:30)
[2024-05-07] MEDS ORDERED: Ipratropium Bromide 2.5 ml Neb NEB SCH (19:00)
[2024-05-07] MEDS ORDERED: Dorzolamide HCl 2% Ophth (10 mL) Bottle EA EYE SCH (21:00)
[2024-05-07] MEDS ORDERED: Brimonidine Tartrate 0.2% Ophth Soln 5 ml Bottle EA EYE SCH (21:00)
[2024-05-07] MEDS ORDERED: Nitroglycerin 0.1mg/Hour PATCH TD SCH (21:00)
[2024-05-07] MEDS ORDERED: Non-Formulary Item 1 EACH (Isosorbide Dinitrate [Isordil] 10 MG Tab) PO SCH (21:00)
[2024-05-07] MEDS ORDERED: Non-Formulary Item 1 EACH (Ranolazine [Ranexa] 1,000 MG Tab.Er.12h) PO SCH (21:00)
[2024-05-08] MEDS ORDERED: Spironolactone 25 MG TAB PO SCH (08:00)
[2024-05-08] MEDS ORDERED: BRINZOLAMIDE EA EYE SCH (09:00)
[2024-05-08] MEDS ORDERED: Clopidogrel Bisulfate 75 MG TAB PO SCH (09:00)
[2024-05-08] MEDS ORDERED: [UNRECOGNIZED DRUG - OTHER] EA EYE SCH (09:00)
[2024-05-08] MEDS ORDERED: Pantoprazole DR 40 MG TAB PO SCH (09:00)
[2024-05-08] MEDS ORDERED: BRIMONIDINE TART EA EYE SCH (09:00)
[2024-05-08] MEDS ORDERED: Cholecalciferol 1,000 UNITS (25 MCG) TAB PO SCH (09:00)
[2024-05-08] MEDS ORDERED: Mag-Al Plus 1200/1200/120 MG (30 mL) UDCUP PO SCH (11:30)
[2024-05-08] MEDS ORDERED: Carvedilol 6.25 MG TAB PO SCH (12:00)
== END 2024-05-07 15:59 | disposition home or self-care (01) | DRG 313 ==
LOC: ERS 13:37 → 2NO 16:41
PROVIDERS: ADMIT Hospitalist; ATTEND Hospitalist
DX: R07.89 Other chest pain (principal); I50.33 Acute on chronic diastolic (congestive) heart failure; J96.21 Acute and chronic respiratory failure with hypoxia; L03.116 Cellulitis of left lower limb; E87.1 Hypo-osmolality and hyponatremia; I25.118 Atherosclerotic heart disease of native coronary artery with other forms of angina pectoris; I11.0 Hypertensive heart disease with heart failure; I73.9 Peripheral vascular disease, unspecified; J44.9 Chronic obstructive pulmonary disease, unspecified; E78.5 Hyperlipidemia, unspecified; K21.9 Gastro-esophageal reflux disease without esophagitis; E03.9 Hypothyroidism, unspecified; Z98.51 Tubal ligation status; Z95.1 Presence of aortocoronary bypass graft; F41.9 Anxiety disorder, unspecified; Z87.891 Personal history of nicotine dependence; Z79.899 Other long term (current) drug therapy
CPT/HCPCS: 36415; 71045; 74176; 75635; 80048; 80053; 80061; 83605; 83690; 83735; 83880; 84439; 84443; 84481; 84484; 85025; 87040; 87070; 87205; 93005; 94640; 94760; 96374; 96375; 97139; J0692; J1650; J1940; J2272; J2543; J3010; J7512; J7620; Q9967

== ENCOUNTER 2024-06-18 09:30 | Outpatient (CLI) | payer OTHER ==
[2024-06-18 11:06] LABS: Hematocrit 39.6 % (36.0-47.0); Hemoglobin 13.6 g/dL (12.0-16.0); Mean Corpuscular HGB CONC 34.3 g/dL (32.0-36.0); Mean Corpuscular Hemoglobin 32.8 pg (27.0-31.0); Mean Corpuscular Volume 95.4 fL (78.0-98.0); Mean Platelet Volume 8.2 fL (7.4-10.4); Platelet Count 512 10x3/uL (130-400); RBC Distribution Width 14.6 % (11.5-14.5); Red Blood Cell (RBC) Count 4.15 mill/uL (4.20-5.40)
[2024-06-18 11:14] LABS: Anion Gap 14 mmol/L (10-20); BUN (Urea Nitrogen) 13 mg/dL (9.8-20.1); Calc. Creatinine Clearance 0 mL/min (70-130); Calcium 8.9 mg/dL (7.8-10.44); Carbon Dioxide 27 mmol/L (22-29); Chloride 91 mmol/L (98-107); Estimated GFR 93; Glucose 111 mg/dL (70-105); Potassium 3.9 mmol/L (3.5-5.1); Sodium 128 mmol/L (136-145)
[2024-06-18 12:32] LABS: Eosinophils 1 % (0-10); Lymphocytes 5 % (21-51); Monocytes 6 % (0-10); Neutrophil 82 % (42-75); Ovalocytes SLIGHT = 2-5 cells HPF (0-1); Platelet Adequacy Comment Platelets Increased; Polychromasia SLIGHT = 2-3 cells HPF (0-2); Reactive Lymphocytes 6 % (0-10)
== END 2024-06-18 09:31 | disposition home or self-care (01) ==
LOC: LABBT 09:30
PROVIDERS: ATTEND Thoracic Surgery (Cardiothoracic Vascular Surgery)
DX: Z01.812 Encounter for preprocedural laboratory examination (principal); I73.9 Peripheral vascular disease, unspecified
CPT/HCPCS: 80048; 85025

== ENCOUNTER 2024-06-28 05:46 | Day surgery (SDC) | payer OTHER ==
[2024-06-18 09:55] VITALS: BMI 30.1
[2024-06-28] MEDS ORDERED: Heparin 10,000 UNITS/ 10 ML VIAL ONE (06:32)
[2024-06-28] MEDS ORDERED: fentaNYL 50 mcg/mL 1 mL Vial ONE ×3 (07:01→08:12)
[2024-06-28] MEDS ORDERED: Midazolam HCl 2 mg/2 ml Vial ONE (07:01)
== END 2024-06-28 11:28 | disposition home or self-care (01) ==
LOC: CCL 05:46
PROVIDERS: ATTEND Thoracic Surgery (Cardiothoracic Vascular Surgery)
PROC: B43FZZZ Magnetic Resonance Imaging (MRI) of Right Lower Extremity Arteries (ICD-10-PCS; principal; 2024-06-28)
PROC: B400YZZ Plain Radiography of Abdominal Aorta using Other Contrast (ICD-10-PCS; principal; 2024-06-28)
PROC: 02713ZZ Dilation of Coronary Artery, Two Arteries, Percutaneous Approach (ICD-10-PCS; principal; 2024-06-28)
DX: I73.9 Peripheral vascular disease, unspecified (principal); E78.5 Hyperlipidemia, unspecified; I10 Essential (primary) hypertension; I25.5 Ischemic cardiomyopathy; I25.10 Atherosclerotic heart disease of native coronary artery without angina pectoris; F41.9 Anxiety disorder, unspecified; J44.9 Chronic obstructive pulmonary disease, unspecified; Z98.51 Tubal ligation status; Z79.899 Other long term (current) drug therapy; Z87.891 Personal history of nicotine dependence; Z88.8 Allergy status to other drugs, medicaments and biological substances
CPT/HCPCS: 36247; 37224; 75625; 75630; 75716; 75774; 85347; C1725; C1760; C1769; C1887; C1894; J1644; J2250; J3010

== ENCOUNTER 2024-08-24 05:32 | Day surgery (SDC) | payer OTHER ==
[2024-08-23 10:38] VITALS: BMI 25.1
[2024-08-24] MEDS ORDERED: Heparin 10,000 UNITS/ 10 ML VIAL ONE (06:40)
[2024-08-24] MEDS ORDERED: fentaNYL 50 mcg/mL 1 mL Vial ONE ×2 (07:03→08:03)
[2024-08-24] MEDS ORDERED: Midazolam HCl 2 mg/2 ml Vial ONE (07:04)
[2024-08-24] MEDS ORDERED: Iopamidol 370 76% 100 ML VIAL ONE (13:03)
== END 2024-08-24 10:56 | disposition home or self-care (01) ==
LOC: SDC 05:32
PROVIDERS: ATTEND Thoracic Surgery (Cardiothoracic Vascular Surgery)
PROC: 4A023N6 Measurement of Cardiac Sampling and Pressure, Right Heart, Percutaneous Approach (ICD-10-PCS; principal; 2024-08-24)
DX: I70.233 Atherosclerosis of native arteries of right leg with ulceration of ankle (principal); I70.243 Atherosclerosis of native arteries of left leg with ulceration of ankle; I11.0 Hypertensive heart disease with heart failure; I50.9 Heart failure, unspecified; E78.5 Hyperlipidemia, unspecified; K21.9 Gastro-esophageal reflux disease without esophagitis; J45.909 Unspecified asthma, uncomplicated; E03.9 Hypothyroidism, unspecified; I25.5 Ischemic cardiomyopathy; I25.118 Atherosclerotic heart disease of native coronary artery with other forms of angina pectoris; J44.9 Chronic obstructive pulmonary disease, unspecified; F41.9 Anxiety disorder, unspecified; Z98.51 Tubal ligation status; Z95.1 Presence of aortocoronary bypass graft; Z87.891 Personal history of nicotine dependence; Z79.899 Other long term (current) drug therapy; Z88.8 Allergy status to other drugs, medicaments and biological substances; Z79.82 Long term (current) use of aspirin; Z88.7 Allergy status to serum and vaccine; Z79.02 Long term (current) use of antithrombotics/antiplatelets; Z79.890 Hormone replacement therapy; Z79.51 Long term (current) use of inhaled steroids
CPT/HCPCS: 36247; 75630; 75710; 99152; 99153; C1760; C1769; C1887; C1894; J1644; J2250; J3010